=== PATIENT | male | born 1965 | race Caucasian/White ===

== ENCOUNTER 2018-06-13 22:14 | Emergency (ER) | payer SELFPAY ==
[~2018-06-13] VITALS: Ht 185.4 cm; Wt 108.9 kg
[2018-06-13 22:20] VITALS: BP 138/81
--- NOTE | 2018-06-13 23:03 | RAD ---
Indication:Twisting injury to right ankle and foot, pain TECHNIQUE: 3 views of the right ankle and 3 views of the right foot COMPARISON:None FINDINGS: Ankle: No acute fracture or dislocation. Ankle mortise is intact. Foot: No acute fracture or dislocation. IMPRESSION: No acute findings. Electronically signed by: Ferny Alvarado DO (06/13/2018 10:58 PM) [facility]
--- NOTE | 2018-06-13 23:03 | RAD ---
Indication:Twisting injury to right ankle and foot, pain TECHNIQUE: 3 views of the right ankle and 3 views of the right foot COMPARISON:None FINDINGS: Ankle: No acute fracture or dislocation. Ankle mortise is intact. Foot: No acute fracture or dislocation. IMPRESSION: No acute findings. Electronically signed by: Ferny Alvarado DO (06/13/2018 10:58 PM) [facility]
[2018-06-13] MEDS ORDERED: TRAM50TA PO (23:22)
[2018-06-13] MEDS ORDERED: INDO50CA5 PO (23:22)
--- NOTE | 2018-06-13 23:23 | PHYS DOC ---
Adult General Chief Complaint Chief Complaint: FOOT INJURY PAIN HPI HPI Patient is a 52-year-old male who presents with complaint of right ankle pain after twisting his ankle coming down stairs. Patient states that he hit the last stair and his ankle rolled and he fell. Patient rates pain in his ankle and on the dorsum of his foot is moderate. He states that pain is worsened with weightbearing. He denies any other injuries. Review of Systems Review of Systems Constitutional: Denies fever or chills [] Respiratory: Denies cough or shortness of breath [] Cardiovascular: No additional information not addressed in HPI [] Musculoskeletal: Positive right ankle and foot pain [] Allergies Allergies Allergies Coded Allergies Type Severity Reaction Last Updated Verified No Known Drug Allergies 06/13/18 No Physical Exam Physical Exam Constitutional: Well developed, well nourished, no acute distress, non-toxic appearance. [] Cardiovascular:Heart rate regular rhythm, no murmur [] Lungs & Thorax: Bilateral breath sounds clear to auscultation [] Extremities: Right ankle demonstrates tenderness to palpation in the region of lateral malleolus as well as along distribution of the posterior talofibular and anterior talofibular ligaments. No significant soft tissue swelling is noted. [] EKG EKG [] Radiology/Procedures Radiology/Procedures [] Impressions: X-rays of right ankle and foot demonstrate no acute bony abnormalities. Course & Med Decision Making Course & Med Decision Making Pertinent Labs and Imaging studies reviewed. (See chart for details) Patient placed in a preformed stirrup splint to right ankle with good fit and alignment. Patient provided with crutches and crutch training by ER nurse. Nakia Disclaimer Nakia Disclaimer This electronic medical record was generated, in whole or in part, using a voice recognition dictation system. Departure Departure: Impression: Primary Impression: Right ankle sprain Disposition: 01 HOME, SELF-CARE Condition: STABLE Referrals: PCP,NO (PCP) Patient Instructions: Ankle Sprain Scripts Indomethacin (INDOMETHACIN) 50 Mg Capsule 1 CAP PO TID PRN for PAIN, #30 CAP Prov: MARIANO VEGA Jr. DO 06/13/18 Tramadol Hcl (TRAMADOL HCL) 50 Mg Tablet 50 MG PO PRN Q6HRS PRN for PAIN, #12 TAB Prov: MARIANO VEGA Jr. DO 06/13/18 Problem Qualifiers Primary Impression: Right ankle sprain Encounter type: initial encounter Involved ligament of ankle: unspecified ligament Qualified Codes: S93.401A - Sprain of unspecified ligament of right ankle, initial encounter MARIANO VEGA Jr. DO Jun 13, 2018 23:23
== END 2018-06-13 23:30 | disposition home or self-care (01) ==
LOC: ER 22:14
DX: S93.401A Sprain of unspecified ligament of right ankle, initial encounter (principal); X50.1XXA Overexertion from prolonged static or awkward postures, initial encounter; Y93.01 Activity, walking, marching and hiking; Y92.89 Other specified places as the place of occurrence of the external cause; Y99.8 Other external cause status
CPT/HCPCS: 29515; 73610; 73630; 99283

== ENCOUNTER 2021-02-04 12:54 | Emergency (ER) | payer SELFPAY ==
[~2021-02-04] VITALS: Ht 185.4 cm; Wt 121.8 kg
[~2021-02-04 12:54] MED LIST: INDO50CA15 PO; TRAM50TA PO
[2021-02-04 13:17] VITALS: BP 142/87
[2021-02-04] MEDS ORDERED: HYDROcodone/APAP 5/325MG 1 TAB TABLET PO ONE (13:30)
--- NOTE | 2021-02-04 14:02 | RAD ---
Exam: 3 views of the right knee Indication: Reason: pain, twisting injury / Spl. Instructions: / History: . Comparison: Unavailable. Findings: No acute fracture. Normal alignment is preserved. A few tiny indeterminate corticated osseous fragmen ts adjacent to the intercondylar notch. Few marginal patellar osteophytes. There is a small joint eff usion. Impression: Small joint effusion with no definite radiographic evidence to suggest acute osseous injury or acute internal derangement. Electronically signed by: Rick Ornelas DO (02/04/2021 2:00 PM) [id number]
[2021-02-04] MEDS ORDERED: HYDR-2155 PO (14:06)
--- NOTE | 2021-02-04 14:07 | PHYS DOC ---
Past History Past Medical History: No Pertinent History Past Surgical History: Other Alcohol Use: None Drug Use: None General Adult EDM: Chief Complaint: KNEE INJURY HPI: HPI: Patient is a [age] year old [sex] who presents with [] Review of Systems: Review of Systems: Constitutional: Denies fever or chills Eyes: Denies redness or eye pain HENT: Denies nasal congestion or sore throat Respiratory: Denies cough or shortness of breath Cardiovascular: Denies chest pain or palpitations GI: Denies abdominal pain, nausea, or vomiting : Denies dysuria or hematuria Musculoskeletal: Denies back pain or joint pain Integument: Denies rash or skin lesions Neurologic: Denies headache, focal weakness or sensory changes Complete systems were reviewed and found to be within normal limits, except as documented in this note. Current Medications: Current Meds: Current Medications Medications (Trade) Dose Ordered Sig/Betsy Start Time Stop Time Status Last Admin Dose Admin Acetaminophen/ Hydrocodone Bitart (Lortab 5/325) 1 tab 1X ONCE 02/04/21 13:30 02/04/21 13:32 DC Allergies: Allergies: Allergies Coded Allergies Type Severity Reaction Last Updated Verified No Known Drug Allergies 06/13/18 No Physical Exam: PE: Constitutional: Well developed, well nourished, no acute distress, non-toxic appearance HENT: Normocephalic, atraumatic Eyes: PERRL, EOMI, conjunctiva normal, no discharge Neck: Normal range of motion, no tenderness, supple Lungs & Thorax: No respiratory distress, equal chest rise and fall Abdomen: Soft, no tenderness Skin: Warm, dry, no erythema, no rash Back: No tenderness, no CVA tenderness Extremities: No tenderness, ROM intact, no edema Neurologic: Alert and oriented X 3, normal motor function, normal sensory function, no focal deficits noted Psychologic: Affect normal, judgment normal Current Patient Data: Vital Signs: Vital Signs Date Time Temp Pulse Resp B/P (MAP) Pulse Ox O2 Delivery O2 Flow Rate FiO2 02/04/21 13:17 98.5 70 16 142/87 (105) 100 Room Air EKG: EKG: [] Radiology/Procedures: Radiology/Procedures: [] Heart Score: C/O Chest Pain: N/A Course & Med Decision Making: Course & Med Decision Making Pertinent Imaging studies reviewed. (See chart for details) Patient stable for discharge with outpatient follow-up with PCP/Orthopedics. Orthopedic referral provided. Discussed findings and plan with patient, who acknowledges understanding and agreement. Nakia Disclaimer: Nakia Disclaimer: This electronic medical record was generated, in whole or in part, using a voice recognition dictation system. Splinting Splinting : Location: Right knee Pre-Made Type: ANNA bandage Pre-Proc Neuro Vasc Exam: normal Post-Proc Neuro Vasc Exam: normal, unchanged from pre-exam Departure Departure: Impression: Primary Impression: Knee pain, right Qualified Codes: M25.561 - Pain in right knee Disposition: HOME / SELF CARE / HOMELESS Condition: STABLE Referrals: PCP,KASSIDY (PCP) LANDEN CAR MD Patient Instructions: Crutch Use, Ladn-dr-Gixu, Knee Pain, Fdvi-dr-Lebn, Knee Wraps (Elastic Bandage) and RICE Additional Instructions: ICE area of discomfort 20 minutes on then leave off next 20 minutes. Repeat several times daily for the next few days. You may also take [id number]-[id number] ibuprofen or naproxen as needed for pain. Scripts Hydrocodone Bit/Acetaminophen (HYDROCODONE-APAP 5-325 ) 1 Each Tablet 0.5-1 TAB PO PRN Q6HRS PRN for PAIN, #10 TAB 0 Refills Prov: GEOFFREY CHAPIN DO 02/04/21 GEOFFREY CHAPIN DO Feb 04, 2021 14:07
== END 2021-02-04 14:15 | disposition home or self-care (01) ==
LOC: ER 12:54
DX: M25.561 Pain in right knee (principal)
CPT/HCPCS: 73562; 99283

== ENCOUNTER 2021-08-19 07:15 | Emergency (ER) | payer SELFPAY ==
[~2021-08-19] VITALS: Ht 185.4 cm; Wt 119.0 kg
[~2021-08-19 07:15] MED LIST changes: +HYDR-2155 PO
--- NOTE | 2021-08-19 07:33 | PHYS DOC ---
Past History Past Medical History: No Pertinent History Past Surgical History: Other Smoking: Cigarettes Alcohol Use: None Drug Use: None General Adult EDM: Chief Complaint: CHEST PAIN HPI: HPI: 55-year-old male presents with shortness of breath and chest discomfort. The patient admits to taking recreational Adderall. He has had a least 3 pills in the last 4 hours. He started to feel short of breath and noticed that his right lower leg was swollen so he decided to come the emergency room. His chest pain is a central tightness feeling a moderate intensity. No history of DVT or PE. He has a history of methamphetamine use. He takes no prescription medication. Review of Systems: Review of Systems: Constitutional: Denies fever or chills Eyes: Denies change in visual acuity HENT: Denies nasal congestion or sore throat Respiratory: shortness of breath Cardiovascular: Chest pain, right lower extremity edema GI: Denies abdominal pain, nausea, vomiting, bloody stools or diarrhea : Denies dysuria Musculoskeletal: Denies back pain or joint pain Integument: Denies rash Neurologic: Denies headache, focal weakness or sensory changes Endocrine: Denies polyuria or polydipsia Lymphatic: Denies swollen glands Psychiatric: Denies depression or anxiety Allergies: Allergies: Allergies Coded Allergies Type Severity Reaction Last Updated Verified No Known Drug Allergies 06/13/18 No Physical Exam: PE: Constitutional: Well developed, well nourished, obese, no acute distress, non- toxic appearance. [] HENT: Normocephalic, atraumatic, bilateral external ears normal, oropharynx dry, no oral exudates, nose normal. [] Eyes: PERRLA, EOMI, conjunctiva normal, no discharge. [] Neck: Normal range of motion, no tenderness, supple, no stridor. [] Cardiovascular: Heart rate 102, regular rhythm, no murmur [] Lungs & Thorax: Bilateral breath sounds clear to auscultation [] Abdomen: Bowel sounds normal, soft, no tenderness, no masses, no pulsatile masses. [] Skin: Warm, dry, no erythema, no rash. [] Back: No tenderness, no CVA tenderness. [] Extremities: No tenderness, no cyanosis, no clubbing, ROM intact, 2+ pitting edema right lower extremity, right calf of greater diameter than left.. [] Neurologic: Alert and oriented X 3, normal motor function, normal sensory function, no focal deficits noted. [] Psychologic: Affect normal, judgement normal, mood normal. [] Current Patient Data: Vital Signs: Vital Signs Date Time Temp Pulse Resp B/P (MAP) Pulse Ox O2 Delivery O2 Flow Rate FiO2 08/19/21 07:15 97.9 107 22 162/94 (116) 99 EKG: EKG: Sinus rhythm, rate 102, normal axis, no ST elevation or depression. [] Radiology/Procedures: Radiology/Procedures: [] Impressions: EXAMINATION: Chest radiograph. VIEWS: 1 COMPARISON: None INDICATION:55 years, Male, chest pain and shortness of breath. FINDINGS: Normal cardiomediastinal silhouette. Left basilar patchy airspace opacity. No pleural effusion or pneumothorax. No acute osseous process. IMPRESSION: Left basilar atelectatic changes versus infiltrate. Electronically signed by: John Golden MD (08/19/2021 7:47 AM) [facility] DICTATED AND SIGNED BY: JOHN GOLDEN MD DATE: 08/19/21745 CC: TERRY KIRAN DO; PCP,NO ~ US DPLX VENOUS EXTREMITY LOWER RT History: Reason: right leg swelling, SOB / Spl. Instructions: / History: Comparison: None. Technique: Multiple longitudinal and transverse high resolution real-time images of the venous system of right lower extremity were obtained with color and Doppler sampling. Findings: The common femoral, superficial femoral, popliteal and proximal calf veins are all patent and demonstrate normal flow and compressibility. Normal respiratory phasicity and augmentation is present. Impression: 1. No evidence of deep vein thrombosis. Electronically signed by: Abhay Hwang DO (08/19/2021 8:12 AM) [id number] DICTATED AND SIGNED BY: ABHAY HWANG DO DATE: 08/19/21809 CC: TERRY KIRAN DO; PCP,NO ~ Heart Score: C/O Chest Pain: Yes HEART Score for Chest Pain: HEART Score for Chest Pain Response (Comments) Value History Moderately Suspicious 1 ECG Normal 0 Age >45 - < 65 1 Risk Factors 1 or 2 Risk Factors 1 Troponin < Normal Limit 0 Total 3 Risk Factors: Risk Factors: DM, Current or recent (<one month) smoker, HTN, HLP, family history of CAD, obesity. Risk Scores: Score 0 - 3: 2.5% MACE over next 6 weeks - Discharge Home Score 4 - 6: 20.3% MACE over next 6 weeks - Admit for Clinical Observation Score 7 - 10: 72.7% MACE over next 6 weeks - Early Invasive Strategies Course & Med Decision Making: Course & Med Decision Making Pertinent Labs and Imaging studies reviewed. (See chart for details) EKG is negative for acute findings. The patient's labs are unremarkable. Troponin is negative. His chest x-ray shows possible left-sided pneumonia. I will treat him with Rocephin and azithromycin. We will discharge him on azithromycin as well. He is stable for discharge at this time. [] Dragon Disclaimer: Dragon Disclaimer: This electronic medical record was generated, in whole or in part, using a voice recognition dictation system. Departure Departure: Impression: Primary Impression: Left lower lobe pneumonia Disposition: HOME / SELF CARE / HOMELESS Condition: STABLE Referrals: PCP,KASSIDY (PCP) Patient Instructions: Pneumonia, Adult, [id number] Scripts Azithromycin (AZITHROMYCIN TABLET) 250 Mg Tablet 250 MG PO DAILY for ANTI-BIOTIC for 4 Days, #4 TAB 0 Refills Prov: TERRY KIRAN DO 08/19/21 TERRY KIRAN DO Aug 19, 2021 07:33
[2021-08-19 07:38] LABS: BASO # 0.1 x10^3/uL (0.0-0.2); BASO % 2 % (0-3); EOS # 0.5 x10^3/uL (0.0-0.7); EOS % 7 % (0-3); HEMATOCRIT 44.7 % (39.0-53.0); HEMOGLOBIN 15.3 g/dL (13.0-17.5); LYMPH % 29 % (24-48); MEAN CORPUSCULAR HEMOGLOBIN 32 pg (25-35); MEAN CORPUSCULAR HGB CONC 34 g/dL (31-37); MEAN CORPUSCULAR VOLUME 94 fL (79-100); MONO # 0.7 x10^3/uL (0.0-1.1); MONO % 10 % (0-9); NEUT # 3.6 x10^3uL (1.8-7.7); NEUT % 53 % (31-73); PLATELET COUNT 249 x10^3/uL (140-400); RED BLOOD COUNT 4.78 x10^6/uL (4.30-5.70); RED CELL DISTRIBUTION WIDTH 13.4 % (11.5-14.5); WHITE BLOOD COUNT 6.9 x10^3/uL (4.0-11.0)
[2021-08-19] MEDS ORDERED: IV NORMAL SALINE 1,000ML 1,000 ML IV ONE (07:45)
[2021-08-19 07:47] LABS: CALCIUM 8.8 mg/dL (8.5-10.1); GFR 77.6; POTASSIUM 3.8 mmol/L (3.5-5.1)
[2021-08-19 07:49] LABS: ALBUMIN/GLOBULIN RATIO 1.3 (1.0-1.7); TOTAL BILIRUBIN 0.4 mg/dL (0.2-1.0)
--- NOTE | 2021-08-19 07:49 | RAD ---
EXAMINATION: Chest radiograph. VIEWS: 1 COMPARISON: None INDICATION:55 years, Male, chest pain and shortness of breath. FINDINGS: Normal cardiomediastinal silhouette. Left basilar patchy airspace opacity. No pleural effusion or pne umothorax. No acute osseous process. IMPRESSION: Left basilar atelectatic changes versus infiltrate. Electronically signed by: Valencia Golden MD (08/19/2021 7:47 AM) [facility]
--- NOTE | 2021-08-19 08:14 | RAD ---
US DPLX VENOUS EXTREMITY LOWER RT History: Reason: right leg swelling, SOB / Spl. Instructions: / History: Comparison: None. Technique: Multiple longitudinal and transverse high resolution real-time images of the venous system of right lower extremity were obtained with color and Doppler sampling. Findings: The common femoral, superficial femoral, popliteal and proximal calf veins are all patent and demonst rate normal flow and compressibility. Normal respiratory phasicity and augmentation is present. Impression: 1. No evidence of deep vein thrombosis. Electronically signed by: Abhay Hwang DO (08/19/2021 8:12 AM) [id number]
[2021-08-19] MEDS ORDERED: NITROGLYCERIN SUBLINGUAL 0.4 MG BOTTLE OF 25. SL PRN (09:30)
[2021-08-19] MEDS ORDERED: MORPHINE SULFATE 4 MG/ML DISP.SYRIN. IV ONE (09:30)
[2021-08-19] MEDS ORDERED: AZITHROMYCIN 250 MG TABLET. PO ONE (09:30)
[2021-08-19] MEDS ORDERED: ONDANSETRON PF 4 MG/2 ML VIAL. IVP ONE (09:30)
[2021-08-19] MEDS ORDERED: IV NORMAL SALINE 50ML 50 ML ONE (09:47)
[2021-08-19] MEDS ORDERED: cefTRIAXone SODIUM 1 GM VIAL ONE (09:47)
[2021-08-19] MEDS ORDERED: AZIT250T6 PO (10:09)
[2021-08-19 10:13] LABS: BARBITURATES NEG (NEG); BENZODIAZEPINES NEG (NEG); CANNABINOIDS NEG (NEG); COCAINE NEG (NEG); METHADONE NEG (NEG); OPIATES NEG (NEG); PHENCYCLIDINE NEG (NEG)
[2021-08-19 10:17] LABS: AMPHETAMINE/METHAMPHETAMINE POS (NEG)
[2021-08-19 10:24] LABS: CLARITY,URINE CLEAR; COLOR,URINE YELLOW
[2021-08-19 10:25] LABS: BACTERIA,URINE 0 /HPF (0-FEW); GLUCOSE,URINE NEG (NEG); NITRITE,URINE NEG (NEG); RBC,URINE 0 /HPF (0-2); SQUAMOUS EPITHELIAL CELL,UR FEW /LPF; UROBILINOGEN,URINE 0.2 mg/dL (0.2 mg/dL)
[2021-08-19 10:27] VITALS: BP 117/63
--- NOTE | 2021-08-19 18:58 | EKG ---
[address] [address] Test Date: 2021-08-19 Test Time: 07:23:28 Pat Name: STANLEY ORTEGA Department: Room: Gender: M [employer]: : 1965 Requested By: TERRY KIRAN Order Number: [id number] Reading MD: Gildardo Coon Measurements Intervals [place] Rate: 102 P: 2 ME: 156 QRS: 42 QRSD: 98 T: 24 QT: 332 QTc: 437 Interpretive Statements SINUS TACHYCARDIA Electronically Signed On 08-26-2021 14:18:23 CDT by Gildardo Coon
== END 2021-08-19 10:30 | disposition home or self-care (01) ==
LOC: ER 07:15
DX: J18.9 Pneumonia, unspecified organism (principal); R60.0 Localized edema; F17.210 Nicotine dependence, cigarettes, uncomplicated
CPT/HCPCS: 36415; 71045; 80053; 80307; 81001; 83880; 84484; 85025; 93005; 93971; 96361; 96365; 96375; 99285; J0696; J2270; J2405; J7030